=== PATIENT | male | born 1945 | race Caucasian/White ===

== ENCOUNTER 2022-10-13 08:22 | Day surgery (SDC) | payer OTHER ==
[2022-10-10 11:29] LABS: Potassium 3.8 mEq/L (3.5-5.1)
[2022-10-13] MEDS ORDERED: LIDOCAINE HCL/PF 3.5% OPTH GEL ONE (09:15)
[2022-10-13] MEDS ORDERED: NA CHLORIDE 0.9% 500 ML ONE (09:16)
[2022-10-13] MEDS: PHENYLEPHRINE 10% OPTH 5ML ONE ×3 (09:36→09:46)
[2022-10-13] MEDS: CYCLOPENTOLATE 1% OPTH 2 ML ONE ×3 (09:36→09:46)
[2022-10-13] MEDS ORDERED: BALANCED SALT IRRIG PLAIN 500 ML IRR ONE (09:49)
[2022-10-13] MEDS ORDERED: LIDOCAINE 1% MPF 2 ML AMPULE ONE (09:49)
[2022-10-13] MEDS ORDERED: BSS OPTHALMIC SOL 15 ML OPTH ONE (09:49)
[2022-10-13] MEDS ORDERED: EPINEPHRINE/PF 1 MG/ML AMP ONE (09:49)
[2022-10-13] MEDS ORDERED: POVIDONE-IODINE 5% EYE DROPS ONE (09:50)
[2022-10-13] MEDS ORDERED: DUOVISC 1 KIT OPTH ONE ×2 (09:50→11:51)
[2022-10-13] MEDS ORDERED: TRYPAN BLUE 0.5 ML SYR OPTH ONE (09:51)
[2022-10-13] MEDS ORDERED: FENTANYL CITR 100 MCG/2 ML ONE (11:10)
[2022-10-13] MEDS ORDERED: MIDAZOLAM HCL 2 MG/2 ML INJ ONE (11:11)
[2022-10-13] MEDS ORDERED: MOXIFLOXACIN HCL 10 DROPS/ML **OR USE OPTH ONE (11:27)
--- NOTE | 2022-10-13 13:12 | EKG ---
Test Date: 2022-10-10 Test Time: 10:53:36 Blast Setter: GARY MEASUREMENT RESULTS: Intervals: Rate: 59 ME: 230 QRSD: 146 QT: 440 QTc: 435 [place]: P: 61 ME: 230 QRS: -37 T: 36 INTERPRETIVE STATEMENTS: Sinus bradycardia with 1st degree AV block Left axis deviation Nonspecific intraventricular block T wave abnormality, consider anterior ischemia Abnormal ECG Compared to ECG 06/03/1993 07:42:00 First degree AV block now present Left-axis deviation now present T-wave abnormality now present Possible ischemia now present Sinus rhythm no longer present Electronically Signed On 10-13-22 13:08:24 CDT by Shay Mobley
--- NOTE | 2022-10-13 13:12 | EKG ---
Test Date: 2022-10-10 Test Time: 10:54:16 Log Snaker: GARY MEASUREMENT RESULTS: Intervals: Rate: 58 GA: 230 QRSD: 154 QT: 434 QTc: 426 [place]: P: 38 GA: 230 QRS: -36 T: 13 INTERPRETIVE STATEMENTS: Sinus bradycardia with 1st degree AV block Left axis deviation Right bundle branch block Minimal voltage criteria for LVH, may be normal variant Abnormal ECG Compared to ECG 10/10/2022 10:53:36 Right bundle-branch block now present Left ventricular hypertrophy now present T-wave abnormality no longer present Possible ischemia no longer present Electronically Signed On 10-13-22 13:08:22 CDT by Shay Mobley
[2022-10-13 14:31] VITALS: TEMP 97.8; O2SAT 97
[2022-10-13 14:32] VITALS: BP 143/71
--- NOTE | 2022-10-13 18:05 | OP ---
Date of Procedure: 10/13/2022 Surgeon: Dali Kilgore MD Anesthesiologist: Savi Lomeli CRNA and Ricky Becerra MD. Preoperative Diagnoses: Posterior subcapsular cataract, right eye and primary open angle glaucoma, mild, right eye. Operations Performed: Phacoemulsification with intraocular lens implant, right eye and insertion of iStent. Anesthesia: Monitored anesthesia care. Complications: None. Description Of Procedure: In the operating room the patient was prepped and draped in the usual sterile fashion for ophthalmic surgery. A lid speculum was placed in the right eye. One paracentesis sites were made inferiorly in the limbal cornea. Preservative free lidocaine 1%, an air bubble, Trypan blue, then Viscoat were placed in the anterior chamber. A keratome was used to enter the anterior chamber. A 360 degree capsulotomy was performed with utrata forceps. The lens was hydrodissected with BSS and rotated freely. The lens was removed with a stop and chop technique. 7.76 phaco CDE was used to remove the lens. Residual cortex was removed with the irrigation and aspiration. Provisc was placed in the capsular bag. A DCB00 +12.0 lens was placed in the capsular bag. There was a small defect in the IOL and this was placed superio-nasally out of the visual axis. Irrigation and aspiration was used to remove residual viscoelastic. Provisc was place in the eye. The patients head was rotated to the left and the microscope angled toward the surgeon. Viscoat then a prism lens were placed on the cornea. Two iStents were placed 3 degrees apart. The patients head and microscope were returned the starting positions. Irrigation and aspiration were used to remove Provisc. The paracentesis sites were hydrated with BSS. The wound and paracentesis sites were inspected and found to be watertight. Vigamox 0.07 cc was placed intracamerally at the end of the procedure. The eye was patched with a clear plastic shield. The patient was returned to day surgery in good condition. Comments: Discharge Instructions: Mr. Farah is discharged to home in good condition to follow up with Dr. Kilgore in the morning. MAKAYLA/EMMANUELLE Voice ID: [id number] Report ID: [id number] [facility]ITALRosal[facility]
== END 2022-10-13 13:20 | disposition home or self-care (01) ==
LOC: OR 08:22
PROVIDERS: ADMIT Ophthalmology Retina Specialist; ATTEND Ophthalmology Retina Specialist
PROC: 08RJ3JZ Replacement of Right Lens with Synthetic Substitute, Percutaneous Approach (ICD-10-PCS; principal; 2022-10-13 10:30)
DX: H25.041 Posterior subcapsular polar age-related cataract, right eye (principal); H25.13 Age-related nuclear cataract, bilateral; H40.1134 Primary open-angle glaucoma, bilateral, indeterminate stage
CPT/HCPCS: 93005 ×2; 80048; 36415; 82947 ×2; 66991; J0171; J2250; J3010; J7040

== ENCOUNTER → 2023-01-19 | Day surgery (SDC) | payer OTHER ==
[2023-01-15 11:52] LABS: Potassium 3.9 mEq/L (3.5-5.1)
[~2023-01-19] MED LIST: CYCLOPENTOLATE 1% OPTH 2 ML ONE; LIDOCAINE HCL/PF 3.5% OPTH GEL ONE; PHENYLEPHRINE 10% OPTH 5ML ONE
[2023-01-19 13:02] VITALS: BP 135/65; TEMP 96.7; O2SAT 98
== END ==
LOC: OR 12:06
PROVIDERS: ATTEND Ophthalmology Retina Specialist
DX: H35.372 Puckering of macula, left eye (principal); Z53.8 Procedure and treatment not carried out for other reasons
CPT/HCPCS: 36415; 80048

== ENCOUNTER 2023-02-02 11:55 | Day surgery (SDC) | payer OTHER ==
[2023-02-02] MEDS ORDERED: NA CHLORIDE 0.9% 500 ML ONE (12:54)
[2023-02-02] MEDS ORDERED: LIDOCAINE HCL/PF 3.5% OPTH GEL ONE (12:54)
[2023-02-02] MEDS: PHENYLEPHRINE 10% OPTH 5ML ONE ×3 (13:08→13:18)
[2023-02-02] MEDS: CYCLOPENTOLATE 1% OPTH 2 ML ONE ×3 (13:08→13:18)
[2023-02-02] MEDS ORDERED: BSS OPTHALMIC SOL 15 ML OPTH ONE (13:30)
[2023-02-02] MEDS ORDERED: POVIDONE-IODINE 5% EYE DROPS ONE (13:31)
[2023-02-02] MEDS ORDERED: MOXIFLOXACIN HCL 10 DROPS/ML **OR USE OPTH ONE (13:31)
[2023-02-02] MEDS ORDERED: BALANCED SALT IRRIG PLAIN 500 ML IRR ONE (13:31)
[2023-02-02] MEDS ORDERED: EPINEPHRINE/PF 1 MG/ML AMP ONE (13:31)
[2023-02-02] MEDS ORDERED: DUOVISC 1 KIT OPTH ONE ×2 (13:32→14:38)
[2023-02-02] MEDS ORDERED: TRYPAN BLUE 0.5 ML SYR OPTH ONE (13:32)
[2023-02-02] MEDS ORDERED: MIDAZOLAM HCL 2 MG/2 ML INJ ONE (14:12)
[2023-02-02] MEDS ORDERED: FENTANYL CITR 100 MCG/2 ML ONE (14:12)
[2023-02-02] MEDS ORDERED: LIDOCAINE 1% MPF 2 ML AMPULE ONE (15:53)
[2023-02-02 16:16] VITALS: BP 149/69; TEMP 98; O2SAT 98
--- NOTE | 2023-02-02 20:37 | OP ---
Date of Procedure: 02/02/2023 Surgeon: Dali Kilgore MD Anesthesiologist: 1. . 2. Ricky Becerra M.D. Preoperative Diagnosis: Moderate open-angle glaucoma and nuclear sclerotic cataract, OS (left eye). Operation Performed: Phacoemulsification with intraocular lens implant with insertion of 2 iStent W' s, left eye. Anesthesia: Monitored anesthesia care. Complications: None. Description Of Procedure: In day surgery, the patient was prepped with Betadine and draped. A conju nctival incision was made in the inferior nasal quadrant with Henny scissors. A sub-Tenon block c onsisting of a 1:1 mixture of 2% Xylocaine and 0.25% bupivacaine was placed through the conjunctival incision with a blunt cannula. A [place] balloon was placed over the eye and the patient was transferr ed to the operating room. In the operating room the patient was prepped and draped in the usual sterile fashion for ophthalmic surgery. A lid speculum was placed in the left eye. Two paracentesis sites were made superiorly and inferiorly in the limbal cornea. Viscoat was placed in the anterior chamber and a crescent blade wa s used to make a corneal groove and tunnel, and a keratome was used to enter the anterior chamber. P rovisc was placed in the anterior chamber and a 360 degree capsulotomy was performed with a cystitome . The lens was hydrodissected with BSS and rotated freely. The lens was removed with a stop and cho p technique. 16.49 Phaco CDE was used to remove the lens. Residual cortex was removed with the irri gation and aspiration. Provisc was placed in the capsular bag. A DCB00, +13.0 lens was placed in th e capsular bag without complications. Irrigation and aspiration was used to remove residual viscoela stic. The paracentesis sites were hydrated with BSS. The wound and paracentesis sites were inspecte d and found to be watertight. Vigamox 0.07 cc was placed intracamerally at the end of the procedure. The eye was irrigated with balanced salt solution. The eye was patched with a soft cotton patch an d Siddiqui metal shield. The patient was returned to day surgery in good condition. Comments: After the intraocular lens was placed in the eye, the [facility] and the patient's head away from the surgeon. Two iStent W's were placed in the trabecular mesh work. Discharge Instructions: Mr. Farah is discharged to home in good condition. MAKAYLA/EMMANUELLE Voice ID: [id number] Report ID: [id number]
== END 2023-02-02 16:00 | disposition home or self-care (01) ==
LOC: OR 11:55
PROVIDERS: ATTEND Ophthalmology Retina Specialist
PROC: 08RK30Z Replacement of Left Lens with Intraocular Telescope, Percutaneous Approach (ICD-10-PCS; principal; 2023-02-02 14:00)
DX: H25.12 Age-related nuclear cataract, left eye (principal); H35.372 Puckering of macula, left eye; H25.042 Posterior subcapsular polar age-related cataract, left eye; H40.1121 Primary open-angle glaucoma, left eye, mild stage
CPT/HCPCS: 82947; 66991; J0171; J2250; J3010; J7040